=== PATIENT | female | born 1940 ===

== ENCOUNTER 2018-02-27 06:31 | Day surgery (SDC) | payer MEDICARE, OTHER ==
[2018-02-23 08:56] VITALS: BMI 20.7
[2018-02-27 07:58] LABS: BASO # 0.01 K/mm3 (0.0-2.0); BASO % 0.2 % (0.0-3.0); EOS # 0.1 (0.0-0.7); EOS % 2.4 % (1.5-5.0); GRAN # 2.98 (1.4-6.5); GRAN % 58.6 % (50.0-68.0); HEMOGLOBIN 11.4 g/dL (12.0-16.0); LYMPH # 1.6 (1.2-3.4); LYMPH % 30.5 % (22.0-35.0); MEAN CELL VOLUME 95.7 fl (80.0-105.0); MEAN CORPUSCULAR HEMOGLOBIN 32.8 pg (25.0-35.0); MEAN CORPUSCULAR HGB CONC 34.2 g/dl (31.0-37.0); MEAN PLATELET VOLUME 10.1 fl (7.0-11.0); MONO # 0.4 (0.1-0.6); MONO % 8.3 % (1.0-6.0); RBC 3.48 10^6/uL (3.5-6.1); RED CELL DISTRIBUTION WIDTH 14.9 % (11.5-14.5); WHITE BLOOD COUNT 5.1 10^3/ul (4.5-11.0)
[2018-02-27] MEDS ORDERED: Propofol 10 mg/ml Inj (20 ML) ONE ×2 (08:06→08:29)
[2018-02-27 08:25] LABS: INR 1.17 (0.93-1.08); PARTIAL THROMBOPLASTIN TIME 27.6 Seconds (25.1-36.5); PROTHROMBIN TIME 13.5 SECONDS (9.4-12.5)
[2018-02-27] MEDS ORDERED: Sodium Chloride 0.9% 1,000 ML IV SCH (08:45)
[2018-02-27 10:19] VITALS: BP 157/61; PULSE 53; RESP 19; TEMP 97.8; O2SAT 99
== END 2018-02-27 10:05 | disposition home or self-care (01) ==
LOC: ENDO 06:31
PROVIDERS: ATTEND Internal Medicine Gastroenterology
DX: K51.50 Left sided colitis without complications (principal); K57.30 Diverticulosis of large intestine without perforation or abscess without bleeding; K64.8 Other hemorrhoids; K56.699 Other intestinal obstruction unspecified as to partial versus complete obstruction
CPT/HCPCS: 36415; 45380; 85025; 85610; 85730; 88305; J2704; J7040

== ENCOUNTER 2018-12-26 08:56 | Outpatient (CLI) | payer MEDICARE, OTHER | END 2018-12-26 08:57 | disposition home or self-care (01) | LOC: LAB 08:56 ==

== ENCOUNTER 2019-02-20 08:42 | Outpatient (CLI) | payer MEDICARE, OTHER | END 2019-02-20 08:43 | disposition home or self-care (01) | LOC: LAB 08:42 ==

== ENCOUNTER 2019-04-06 09:16 | Outpatient (CLI) | payer MEDICARE, OTHER | END 2019-04-06 09:17 | disposition home or self-care (01) | LOC: LAB 09:16 ==